=== PATIENT | male | born 1960 | race Caucasian/White ===

== ENCOUNTER 2016-05-12 19:07 | Observation (INO) | payer MEDICARE, MEDICAID ==
[~2016-05-12] VITALS: Ht 182.9 cm; Wt 113.4 kg
[2016-05-12 19:36] LABS: BASO # 0.1 K/mm3 (0.0-0.2); BASO % 0.7 % (0.0-1.0); EOS # 0.2 K/mm3 (0.0-0.50); EOS % 2.6 % (0.0-3.0); LARGE UNSTAINED CELL # 0.2 K/mm3 (0.0-0.4); LARGE UNSTAINED CELL % 1.8 % (0.0-4.0); LYMPH # 1.7 K/mm3 (1.5-4.5); LYMPH % 19.1 % (24.0-44.0); MEAN CORPUSCULAR HEMOGLOBIN 27.2 pg (27.0-33.0); MEAN CORPUSCULAR HGB CONC 33.1 g/dl (32.0-36.5); MONO # 0.6 K/mm3 (0.0-0.8); MONO % 6.4 % (0.0-5.0); NEUTROPHILS # 6.2 K/mm3 (1.8-7.7); NEUTROPHILS % 69.4 % (36.0-66.0); PLATELET COUNT, AUTOMATED 166 k/mm3 (150-450); RED CELL DISTRIBUTION WIDTH 13.9 % (11.5-14.5)
[2016-05-12 19:50] LABS: ANION GAP 7 MEQ/L (8-16); BLOOD UREA NITROGEN 14 MG/DL (7-18); CARBON DIOXIDE LEVEL 27 MEQ/L (21-32); CHLORIDE LEVEL 109 MEQ/L (98-107); CREATININE FOR GFR 1.12 MG/DL (0.70-1.30); GLOMERULAR FILTRATION RATE > 60.0 (>56); GLUCOSE, FASTING 99 MG/DL (70-105); POTASSIUM SERUM 3.8 MEQ/L (3.5-5.1); SODIUM LEVEL 143 MEQ/L (136-145)
--- NOTE | 2016-05-12 21:27 | REP ---
AP portable sitting chest radiograph 05/12/2016 Indication: Chest pain Comparison: None Findings: Cardiac silhouette is mildly enlarged. There is ectasia of thoracic aorta. There are diminished lung volumes with a small amount of bibasilar atelectasis. Pulmonary venous hypertension is suggested. Bones and soft tissues within normal limits Impression 1. Mild apparent cardiomegaly, contributed to portable technique 2. Diminished lung volumes with mild bibasilar atelectasis. 3. Pulmonary venous hypertension is suggested Signed by Zaida Jimenez MD 05/12/2016 09:18 P
[2016-05-12] MEDS ORDERED: PERCOCET 5MG/325MG TAB As Ordered ONE (23:23)
[2016-05-12] MEDS ORDERED: ZOLO100T PO (23:31)
[2016-05-12] MEDS ORDERED: PLAV75TA38 PO (23:31)
[2016-05-12] MEDS ORDERED: LOPR1TAB7 PO (23:31)
[2016-05-13 00:31] LABS: CHOLESTEROL LEVEL 173 MG/DL (<200); TRIGLYCERIDES LEVEL 297 MG/DL (<150)
[2016-05-13] MEDS ORDERED: NITROGLYCERIN 2% OINT 1 GM *U/D* PKT As Ordered ONE (00:33)
[2016-05-13] MEDS ORDERED: HEPARIN SOD (PORCINE) 5000 UNITS/ML VIAL IV ONE (01:00)
[2016-05-13] MEDS ORDERED: HEPARIN DRIP 25,000 UNITS in APPROPRIATE DILUENT 1 EA IV SCH (01:00)
[2016-05-13] MEDS ORDERED: HEPARIN SOD (PORCINE) 5000 UNITS/ML VIAL IV PRN (01:00)
[2016-05-13] MEDS ORDERED: MORPHINE 2 MG/ML 1ML SYRINGE As Ordered ONE (01:23)
[2016-05-13] MEDS ORDERED: METOPROLOL TART 50 MG TAB As Ordered ONE (01:23)
[2016-05-13] MEDS ORDERED: HEPARIN SOD (PORCINE) 5000 UNITS/ML VIAL As Ordered ONE (01:31)
[2016-05-13] MEDS ORDERED: HEPARIN 25,000 UNITS/250 ML D5W BAG (100 UNITS/ML) As Ordered ONE (01:31)
[2016-05-13 01:39] LABS: INR 0.99
[2016-05-13] MEDS ORDERED: ACETAMINOPHEN TAB 650MG DOSE (2X325MG) PO PRN (02:15)
[2016-05-13] MEDS ORDERED: MORPHINE 2 MG/ML 1ML SYRINGE IV PRN (02:15)
[2016-05-13] MEDS ORDERED: ONDANSETRON 4MG/2ML VIAL (J2405) IV PRN (02:15)
[2016-05-13 04:00] VITALS: BP 142/79
[2016-05-13 04:07] LABS: BASO # 0.3 K/mm3 (0.0-0.2); EOS # 0.3 K/mm3 (0.0-0.50); EOS % 3.2 % (0.0-3.0); LARGE UNSTAINED CELL # 0.1 K/mm3 (0.0-0.4); LARGE UNSTAINED CELL % 1.4 % (0.0-4.0); LYMPH # 2.7 K/mm3 (1.5-4.5); LYMPH % 26.4 % (24.0-44.0); MEAN CORPUSCULAR HEMOGLOBIN 26.8 pg (27.0-33.0); MEAN CORPUSCULAR HGB CONC 31.6 g/dl (32.0-36.5); MEAN CORPUSCULAR VOLUME 84.9 fl (80.0-96.0); MONO # 0.4 K/mm3 (0.0-0.8); MONO % 4.5 % (0.0-5.0); NEUTROPHILS # 5.9 K/mm3 (1.8-7.7); NEUTROPHILS % 61.5 % (36.0-66.0); PLATELET COUNT, AUTOMATED 140 k/mm3 (150-450); RED CELL DISTRIBUTION WIDTH 14.9 % (11.5-14.5); WHITE BLOOD COUNT 9.7 K/mm3 (4.0-10.0)
--- NOTE | 2016-05-13 04:07 | HPE ---
DATE OF ADMISSION: 05/13/2016 This is a patient of the [facility]. Steward/Stewardess Second is in [facility]. CHIEF COMPLAINT: Chest pain. The following is a summary of his presentation: This is a 55-year-old, known coronary artery disease status post myocardial infarction (MN) in 2013, who was taking the [employer] bus today on his way to visit a friend in [place]. Around 20 minutes from getting on the bus he developed chest pain, which was sudden in onset, 8/10, felt as though as the middle of his chest was caving in, radiating to his left neck and left arm. He became diaphoretic and vomited once in the bathroom at the back of the bus. He did take two nitroglycerin with no effect. He takes nitroglycerin at home three times a week, 1-2 tablets to relieve similar type of chest pain. He has elected not to discuss this with his primary care doctor as he did not want to go for further workup or catheterization. Chest pain lasted until about 1750 today. When he arrived in [place], upon getting off the bus, he developed chest pain again and the manager business planning suggested that rather than getting a cab to his friend's house he should probably come to the emergency room. In the emergency room, pain was treated and then recurred. When it recurred it was 5/10. It was radiating to his neck and arm, but did not cause nausea or diaphoresis. He was given opiates for the pain. He refused aspirin as he has an allergy to aspirin. He was also given nitroglycerin. Beta alejandra was started. He was started on a heparin drip and given intravenous (IV) morphine. Currently, he is pain free and sleeping. ALLERGIES: To ASPIRIN, which causes rash and shortness of breath. MEDICATIONS AT HOME: Include: - Plavix 75 mg daily - Lopressor 100 mg twice daily - Zoloft 100 mg once daily PAST MEDICAL HISTORY: Notable for: 1. Hypertension. 2. Coronary artery disease with an angioplasty done in 2013. 3. He has asthma, seldom uses an inhaler. PAST SURGICAL HISTORY: Notable for: 1. Two cardiac catheterizations. 2. Tonsillectomy. 3. Repair of a fractured right arm when he was younger. Socially, he has never been a smoker. He has not used alcohol in 32 years. He is on disability. He lives in [place], [place]. He is originally from [place], [place]. He is in [place] visiting a friend. FAMILY HISTORY: Notable for a father who of a myocardial infarction at age 59, a mother who is alive at 90, but had two myocardial infarctions, the first at age 60. REVIEW OF SYSTEMS: Notable for no headache. No visual changes. No runny nose. No sore throat. Not complaining of shortness of breath, although his breathing did get a little short when the pain was very intense. He does not suffer from lower extremity edema or orthopnea. His girlfriend tells him that he has sleep apnea. No abdominal pain. No change in bowel or bladder habits. Otherwise unremarkable. PHYSICAL EXAMINATION: Blood pressure 165/94, pulse 72, respiratory rate 20, temperature 99.2, pulse oximetry 95% on room air. Weight is 113.4 kg. He is awake, appropriately interactive, pleasantly conversant. He is a remarkably good historian. Mucous membranes moist. Neck is supple, but thick. Breathing is symmetrical, rested. I:E ratio is 1:3. There are no wheezes, rales or rhonchi. Heart is in a regular rate and rhythm. Normal S1, S2. Is not tachycardic. Radial pulses are 2+. Capillary refill is less than 2 seconds. Abdomen is round, soft, nontender. There is trace edema to the bilateral knees. He is moving all four extremities. Cranial nerves II-XII are grossly intact. He has a normal mood and affect. There are labs available for me to review, which include the following: White cell count is 9, hemoglobin is 14.8, platelets of 166. Sodium 143, BUN 14, creatinine 1.12, CK 60, repeats to 48, troponin I less than 0.02, repeats to less than 0.02. BNP is 7. Triglycerides 297, LDL is 76. Chest x-ray shows mild apparent cardiomegaly, diminished lung volumes with mild bibasilar atelectasis and pulmonary venous hypertension is suggested. EKGs show Q waves in the inferior leads and T-wave changes associated with those. He has evidence of left ventricular hypertrophy (LVH) by aVL criteria. My assessment is as follows: This is a 55-year-old in the setting of known coronary artery disease with unstable angina, most likely presenting as crescendo symptoms, which are brought on even at rest and not relieved with nitroglycerin. The patient will require catheterization and will be admitted to our hospital overnight. Plan is as follows: 1. Cardiovascular. Patient is on a heparin drip. He is continued on Plavix. I have given him beta alejandra. He is on nitroglycerin. He has opiates available for pain and he is currently pain free. I have discussed the case by phone with Dr. Valiente from [facility], who has agreed to accept the patient in transfer for consideration for catheterization and perhaps intervention. 2. Deep venous thrombosis (DVT) prophylaxis will be full-dose heparin. 3. Will continue his Zoloft. 4. Will keep him on a clear liquid diet for now and will sign this patient out to Dr. Rivas in the morning.
[2016-05-13 04:16] LABS: ANION GAP 9 MEQ/L (8-16); BLOOD UREA NITROGEN 14 MG/DL (7-18); CALCIUM LEVEL 8.5 MG/DL (8.5-10.1); CARBON DIOXIDE LEVEL 26 MEQ/L (21-32); CHLORIDE LEVEL 109 MEQ/L (98-107); CREATININE FOR GFR 1.01 MG/DL (0.70-1.30); GLOMERULAR FILTRATION RATE > 60.0 (>56); GLUCOSE, FASTING 99 MG/DL (70-105); SODIUM LEVEL 144 MEQ/L (136-145)
[2016-05-13 06:00] VITALS: BP 126/78
[2016-05-13] MEDS ORDERED: METOPROLOL TART 50 MG TAB PO SCH (06:00)
[2016-05-13 08:00] VITALS: BP 126/85
[2016-05-13] MEDS ORDERED: CLOPIDOGREL 75 MG TAB As Ordered ONE (08:29)
[2016-05-13] MEDS ORDERED: SERTRALINE 100 MG TAB As Ordered ONE (08:30)
[2016-05-13] MEDS ORDERED: SENOKOT S TAB PO SCH (09:00)
[2016-05-13] MEDS ORDERED: SERTRALINE 100 MG TAB PO SCH (09:00)
[2016-05-13] MEDS ORDERED: CLOPIDOGREL 75 MG TAB PO SCH (09:00)
--- NOTE | 2016-05-13 09:48 | EDDOCDS ---
Physician Documentation [facility] Name: Donn Gastelum Age: 55 yrs Sex: Male : 1960 Arrival Date: 05/12/2016 Time: 19:07 Bed Admit Hold Private MD: Disposition: 05/12/16 22:55 Hospitalization ordered by Donn Wing for Inpatient Admission. Preliminary diagnosis is Chest pain, unspecified. - Bed requested for Admit. - Status is Inpatient Admission. bcj - Condition is Stable. - Problem is new. - Symptoms have improved. Historical: - Allergies: Aspirin; - Home Meds: 1. Plavix 75 mg Oral tab 1 tab once daily (Last dose: 05/12/2016 08:00) 2. Lopressor 100 mg Oral tab 1 tab 2 times per day (Last dose: 05/12/2016 08:00) 3. Zoloft 100 mg Oral tab 1 tab once daily (Last dose: 05/12/2016 08:00) 4. metoprolol tartrate 100 mg Oral tab 1 tab once daily (Last dose: 05/12/2016 08:00) - PMHx: Hypertension; MIX2; - PSHx: Catheterization X2; Tonsillectomy; - Social history: Smoking status: Patient states was never smoker of tobacco. No barriers to communication noted, The patient speaks fluent [place], Speaks appropriately for age. - Family history: Not pertinent. - : The pt / caregiver states he / she is on anticoagulants: Plavix. Home medication list is obtained from the patient. - Exposure Risk Screening:: None identified. Vital Signs: 05/12 19:13 BP 160 / 91; Pulse 91; Resp 20; Temp 99.2(TE); Pulse Ox 95% on R/A; Weight 113.4 kg / audrey 250 lbs (R); Height 6 ft. 0 in. (182.88 cm) (R); Pain 5/10; 19:40 Pulse 86 MON; Pulse Ox 95% ; ko2 19:41 BP 162 / 80 (auto/); ko2 20:11 BP 155 / 80 (auto/); ko2 20:11 Pulse 82 MON; Pulse Ox 94% ; ko2 20:40 Pulse 78 MON; Pulse Ox 95% ; ko2 20:41 BP 156 / 77 (auto/); ko2 21:11 BP 151 / 74 (auto/); ko2 21:11 Pulse 76 MON; Pulse Ox 94% ; ko2 21:40 Pulse 78 MON; Pulse Ox 95% ; ko2 21:41 BP 164 / 86 (auto/); ko2 22:10 Pulse 74 MON; Pulse Ox 94% ; ko2 22:11 BP 157 / 83 (auto/); ko2 22:41 BP 161 / 103 (auto/); ko2 22:41 Pulse 70 MON; Pulse Ox 93% ; ko2 23:10 Pulse 72 MON; Pulse Ox 95% ; ko2 23:11 BP 165 / 94 (auto/); ko2 05/13 00:25 BP 177 / 110 (auto/); ko2 00:26 Pulse 64 MON; Pulse Ox 95% ; ko2 00:55 BP 190 / 103 (auto/); ko2 00:55 Pulse 62 MON; Pulse Ox 95% ; ko2 01:25 BP 185 / 135 (auto/); ko2 01:26 Pulse 62 MON; Pulse Ox 96% ; ko2 01:43 BP 185 / 99 (auto/); ko2 01:44 Pulse 62 MON; ko2 01:49 BP 168 / 98 (auto/); ko2 01:50 Pulse 64 MON; ko2 01:55 BP 179 / 110 (auto/); ko2 01:56 Pulse 62 MON; ko2 02:09 BP 178 / 97 (auto/); ko2 02:09 Pulse 62 MON; ko2 02:25 BP 164 / 96 (auto/); ko2 02:26 Pulse 56 MON; ko2 05/12 19:13 Body Mass Index 33.91 (113.40 kg, 182.88 cm) audrey MDM: 05/12 19:15 ECG WITH READING ER PHYS+CARDIAG ordered. EDMS 19:19 Aspirin Chewable Tablet 324 mg PO once ordered. fg 19:19 Bacteriologist Soil/Pulse Ox/q 30 min VS ordered. fg 19:19 IV Saline Lock ordered. fg 19:19 Rhythm Strip to chart ordered. fg 19:19 Undress patient appropriately for examination ordered. fg 19:19 Basic Metabolic Profile Ordered. EDMS 19:19 CBC with Diff Ordered. EDMS 19:20 Cardiac Injury Profile Ordered. EDMS 19:20 Troponin Ordered. EDMS 19:21 portable chest Ordered. EDMS 20:25 BNP Ordered. EDMS 21:49 Repeat EKG (put time details section) ordered. fg 21:50 Redraw CIP &Troponin (put time in details section) ordered. fg 21:51 Redraw CIP &Troponin (put time in details section) complete. ml3 21:51 Repeat EKG (put time details section) complete. ml3 21:52 ECG WITH READING ER PHYS ordered. EDMS 21:53 CARDIAC MARKER PANEL Ordered. EDMS 22:05 Financial registration complete. [email or web address] 22:05 [facility] Payment Agreement was scanned into [id number] and attached to record. [email or web address] 22:56 BED REQUEST+ADM ordered. EDMS 23:04 oxyCODONE-acetaminophen 5 mg-325 mg 1 tabs PO once ordered. fg 05/13 00:02 ELECTROCARDIOGRAM ADULT ordered. EDMS 00:11 CARDIAC RISK PROFILE Ordered. EDMS 01:01 Written Provider Order was scanned into [id number] and attached to record. ml3 01:04 PARTIAL THROMBOPLASTIN TIME Ordered. EDMS 01:04 PARTIAL THROMBOPLASTIN TIME Ordered. EDMS 01:04 PARTIAL THROMBOPLASTIN TIME Ordered. EDMS 01:04 PARTIAL THROMBOPLASTIN TIME Ordered. EDMS 01:29 PROTHROMBIN TIME PROFILE\E\INR Ordered. EDMS 02:14 Admission / Observation Status ordered. EDMS 02:14 ELECTROCARDIOGRAM ADULT ordered. EDMS 02:14 OTHER CUSTOM DIETS ordered. EDMS 02:16 CARDIAC MARKER PANEL Ordered. EDMS 02:16 CARDIAC MARKER PANEL Ordered. EDMS 02:16 CARDIAC MARKER PANEL Ordered. EDMS 02:16 CARDIAC MARKER PANEL Ordered. EDMS 02:16 CBC WITH DIFFERENTIAL Ordered. EDMS 02:17 BASIC METABOLIC PROFILE Ordered. EDMS Administered Medications: 05/12 19:22 Not Given (Patient Refused): Aspirin Chewable Tablet 324 mg PO once fg 23:31 Drug: oxyCODONE-acetaminophen 1 tabs [oxycodone-acetaminophen 5 mg-325 mg tablet (1 ko2 tabs)] Route: PO; Signatures: Dispatcher [employer] EDMS Dimas James, MORGAN RN Manish Haque, [employer] ml3 Radha Young RN RN ko2 Keila Wills MD MD Mayelin Linares, Reg Reg [email or web address] The chart was reviewed and I authenticate all verbal orders and agree with the evaluation and treatment provided.Corrections: (The following items were deleted from the chart) 05/13 00:11 00:06 CARDIAC RISK PROFILE ordered. EDMS EDMS : 01:20 PROTHROMBIN TIME PROFILE\E\INR+LAB ordered. EDMS EDMS Attachments: 05/12 22:05 [facility] Payment Agreement [email or web address] 05/13 01:01 Written Provider Order ml3 MTDD
--- NOTE | 2016-05-13 09:48 | EDDOCDS ---
Nurse's Notes [facility] Name: Donn Gastelum Age: 55 yrs Sex: Male : 1960 Arrival Date: 05/12/2016 Time: 19:07 Bed Admit Hold Private MD: Diagnosis: Chest pain, unspecified Presentation: 05/12 19:09 Presenting complaint: EMS states: an hour ago developed chest pain. Took 2 Nitro and ko2 pain went away. Got on the bus and chest pain started again. Pt has had a catheterization before and is supposed to schedule himself for another one and hasn't yet. Aspirin was not taken prior to arrival. Suicide/Homicide risk assessment- the patient denies having any suicidal and/or homicidal ideations and does not present with any other emotional, behavioral or mental health complaints. Status: Patient is not a director water and waste services or dependent. Transition of care: patient was not received from another setting of care. Care prior to arrival: See EMS report. Medications administered prior to arrival: NTG. 19:09 Acuity: BRIAN Level 2 ko2 19:09 Method Of Arrival: Ambulance ko2 20:03 Adult Sepsis Screening: The patient does not have new or worsening altered mentation. ko2 Patient's respiratory rate is less than 22. Systolic blood pressure is greater than 100. Patient has a qSOFA score of 0- Negative Sepsis Screen. Triage Assessment: 19:17 General: Appears in no apparent distress, Behavior is appropriate for age, cooperative. ko2 Pain: Location: anterior aspect of left upper chest Pain currently is 5 out of 10 on a pain scale. Pain radiates to neck and left arm. Pt Declines HIV testing. The patient is triaged at the bedside. See Assessment in Nurses Notes section of ED record. Neurological: Level of Consciousness is awake, alert, Oriented to person, place, time. Cardiovascular: Capillary refill < 3 seconds Heart tones S1 S2 present Rhythm is sinus rhythm Chest pain is described as Pain is 5 out of 10 on a pain scale. radiates to left arm(s) neck episodes are continuous began 2 hours prior to arrival. Respiratory: Airway is patent Respiratory effort is even, unlabored, Respiratory pattern is regular, symmetrical. GI: Abdomen is obese, Bowel sounds present X 4 quads. Abd is soft and non tender. Derm: Skin is pink, warm & dry. Musculoskeletal: Range of motion intact in all extremities. Historical: - Allergies: Aspirin; - Home Meds: 1. Plavix 75 mg Oral tab 1 tab once daily (Last dose: 05/12/2016 08:00) 2. Lopressor 100 mg Oral tab 1 tab 2 times per day (Last dose: 05/12/2016 08:00) 3. Zoloft 100 mg Oral tab 1 tab once daily (Last dose: 05/12/2016 08:00) 4. metoprolol tartrate 100 mg Oral tab 1 tab once daily (Last dose: 05/12/2016 08:00) - PMHx: Hypertension; MIX2; - PSHx: Catheterization X2; Tonsillectomy; - Social history: Smoking status: Patient states was never smoker of tobacco. No barriers to communication noted, The patient speaks fluent Montserratian, Speaks appropriately for age. - Family history: Not pertinent. - : The pt / caregiver states he / she is on anticoagulants: Plavix. Home medication list is obtained from the patient. - Exposure Risk Screening:: None identified. Screenin:20 Screening information is obtained from the patient. Fall risk: No risks identified. ko2 Fall risk: No risks identified. Assistance ADL's: requires no assistance with activities of daily living. Abuse/DV Screen: The patient / caregiver reports he/she is: not in a situation that causes fear, pain or injury. Nutritional screening: No deficits noted. Advance Directives: Currently, there is no health care proxy. There is no active DNR order. There is no living will. There is no Power of Carton Forming Machine Operator. home support is adequate. Assessment: 19:20 General: See triage assessment. ko2 20:05 General: Appears in no apparent distress, comfortable, Behavior is appropriate for age, ko2 cooperative. Neurological: Level of Consciousness is awake, alert. Cardiovascular: Rhythm is regular. Respiratory: Airway is patent Respiratory effort is even, unlabored. Derm: Skin is normal. 21:00 General: Appears in no apparent distress, comfortable, Behavior is appropriate for age, ko2 cooperative. Neurological: Level of Consciousness is awake, alert. Cardiovascular: Rhythm is regular. Respiratory: Airway is patent Respiratory effort is even, unlabored. Derm: Skin is normal. 22:09 General: Appears in no apparent distress, comfortable, Behavior is appropriate for age, ko2 cooperative. Pain: Location: left arm and neck and chest Pain currently is 5 out of 10 on a pain scale. Neurological: Level of Consciousness is awake, alert. Respiratory: Airway is patent Respiratory effort is even, unlabored. Derm: Skin is normal. 23:14 General: Appears in no apparent distress, Behavior is appropriate for age, cooperative. ko2 Neurological: Level of Consciousness is awake, alert. Respiratory: Airway is patent Respiratory effort is even, unlabored. Derm: Skin is normal. 05/13 00:30 General: Appears in no apparent distress, comfortable, Behavior is appropriate for age, ko2 cooperative. Pain: Location: left arm and neck and chest Pain currently is 5 out of 10 on a pain scale. Neurological: Level of Consciousness is awake, alert. Cardiovascular: Rhythm is regular. Respiratory: Airway is patent Respiratory effort is even, unlabored. 02:00 General: Appears in no apparent distress, comfortable, Behavior is appropriate for age, ko2 cooperative. Pain: Denies pain. Neurological: Level of Consciousness is awake, alert. Cardiovascular: Rhythm is regular. Respiratory: Airway is patent Respiratory effort is even, unlabored. Derm: Skin is normal. 02:57 General: Appears in no apparent distress, comfortable, Behavior is appropriate for age, ko2 cooperative. Pain: Denies pain. Neurological: Level of Consciousness is awake, alert. Respiratory: Airway is patent Respiratory effort is even, unlabored. Derm: 02:58 General: Report given to MORGAN Barrett. [facility] . ko2 04:17 General:. Cardiovascular: Rhythm is regular. ko2 Vital Signs: 05/12 19:13 BP 160 / 91; Pulse 91; Resp 20; Temp 99.2(TE); Pulse Ox 95% on R/A; Weight 113.4 kg audrey (R); Height 6 ft. 0 in. (182.88 cm) (R); Pain 5/10; 19:40 Pulse 86 MON; Pulse Ox 95% ; ko2 19:41 BP 162 / 80 (auto/); ko2 20:11 BP 155 / 80 (auto/); ko2 20:11 Pulse 82 MON; Pulse Ox 94% ; ko2 20:40 Pulse 78 MON; Pulse Ox 95% ; ko2 20:41 BP 156 / 77 (auto/); ko2 21:11 BP 151 / 74 (auto/); ko2 21:11 Pulse 76 MON; Pulse Ox 94% ; ko2 21:40 Pulse 78 MON; Pulse Ox 95% ; ko2 21:41 BP 164 / 86 (auto/); ko2 22:10 Pulse 74 MON; Pulse Ox 94% ; ko2 22:11 BP 157 / 83 (auto/); ko2 22:41 BP 161 / 103 (auto/); ko2 22:41 Pulse 70 MON; Pulse Ox 93% ; ko2 23:10 Pulse 72 MON; Pulse Ox 95% ; ko2 23:11 BP 165 / 94 (auto/); ko2 05/13 00:25 BP 177 / 110 (auto/); ko2 00:26 Pulse 64 MON; Pulse Ox 95% ; ko2 00:55 BP 190 / 103 (auto/); ko2 00:55 Pulse 62 MON; Pulse Ox 95% ; ko2 01:25 BP 185 / 135 (auto/); ko2 01:26 Pulse 62 MON; Pulse Ox 96% ; ko2 01:43 BP 185 / 99 (auto/); ko2 01:44 Pulse 62 MON; ko2 01:49 BP 168 / 98 (auto/); ko2 01:50 Pulse 64 MON; ko2 01:55 BP 179 / 110 (auto/); ko2 01:56 Pulse 62 MON; ko2 02:09 BP 178 / 97 (auto/); ko2 02:09 Pulse 62 MON; ko2 02:25 BP 164 / 96 (auto/); ko2 02:26 Pulse 56 MON; ko2 05/12 19:13 Body Mass Index 33.91 (113.40 kg, 182.88 cm) audrey Vitals: 05/12 19:40 Log In Time N/A - ambulance arrival. ko2 ED Course: 19:07 Patient visited by Manish Mcnamara, Foreclosure Paralegal. ml3 19:07 Patient moved to Waiting ml3 19:08 Radha Young,RN is Primary Nurse. ml3 19:08 Patient moved to 9 ml3 19:12 Triage Initiated ko2 19:13 Patient visited by Suzy Leon PCA. audrey 19:13 Pt greeted and oriented to ED. Patient advised of names of staff involved in care, audrey location of call chan, wait times and NPO status. Patient has correct armband on for positive identification. Placed in gown. Bed in low position. Call light in reach. Side rails up X2. study manager on. Pulse ox on. NIBP on. 19:19 Keila Wills MD is Attending Physician. fg 19:19 Patient visited by Suzy Leon PCA. audrey 19:19 EKG done. (by ED staff). Reviewed by Keila Wills MD. audrey 19:21 Basic Metabolic Profile Sent. ko2 19:21 CBC with Diff Sent. ko2 19:21 Cardiac Injury Profile Sent. ko2 19:21 Troponin Sent. ko2 20:04 The patient / caregiver is instructed regarding the plan of care and ED course. ko2 20:04 Inserted saline lock: 18 gauge in right antecubital area and blood collected. The ko2 patient tolerated the procedure well. IV started by Tania Gerber RN. 20:06 Patient visited by Radha Young,MORGAN. ko2 20:24 Patient visited by Keila Wills MD. fg 21:27 Patient visited by Radha Young RN. ko2 22:02 portable chest Returned. EDMS 22:03 EKG done. (by ED staff). Reviewed by Keila Wills MD. cln 22:05 [facility] Payment Agreement was scanned into [employer] and attached to record. ks16 22:09 CARDIAC MARKER PANEL Sent. ko2 22:12 Patient name changed from Donn\S\\S\Dombal\S\ to Donn\S\ \S\Dombal. EDMS 22:31 Patient visited by Radha Young RN. ko2 22:55 Donn Wing MD is Hospitalizing Provider. fg 23:33 Patient moved to 19 audrey 05/13 00:05 Patient visited by Suzy Leon PCA. audrey 00:05 EKG done. (by ED staff). Reviewed by Donn Wing MD. audrey 01:01 Written Provider Order was scanned into [employer] and attached to record. ml3 02:45 Patient moved to Admit Hold ml3 07:12 Primary Nurse role handed off by Radha Young,RN ar3 Administered Medications: 05/12 19:22 Not Given (Patient Refused): Aspirin Chewable Tablet 324 mg PO once fg 23:31 Drug: oxyCODONE-acetaminophen 1 tabs [oxycodone-acetaminophen 5 mg-325 mg tablet (1 ko2 tabs)] Route: PO; Order Results: Lab Order: Basic Metabolic Profile; SPEC'M 05/12/16 19:16 Test: GLUCOSE, FASTING; Value: 99; Range: 70-105; Units: MG/DL; Status: F Test: BLOOD UREA NITROGEN; Value: 14; Range: 7-18; Units: MG/DL; Status: F Test: CREATININE FOR GFR; Value: 1.12; Range: 0.70-1.30; Units: MG/DL; Status: F Test: GLOMERULAR FILTRATION RATE; Value: > 60.0; Range: >56; Status: F Test: SODIUM LEVEL; Value: 143; Range: 136-145; Units: MEQ/L; Status: F Test: POTASSIUM SERUM; Value: 3.8; Range: 3.5-5.1; Units: MEQ/L; Status: F Test: CHLORIDE LEVEL; Value: 109; Range: 98-107; Abnormal: Above high normal; Units: MEQ/L; Status: F Test: CARBON DIOXIDE LEVEL; Value: 27; Range: 21-32; Units: MEQ/L; Status: F Test: ANION GAP; Value: 7; Range: 8-16; Abnormal: Below low normal; Units: MEQ/L; Status: F Test: CALCIUM LEVEL; Value: 9.0; Range: 8.5-10.1; Units: MG/DL; Status: F Test Note: ; Units are mL/min/1.73 m2 Chronic Kidney Disease Staging per NKF: Stage I & II GFR >=60 Normal to Mildly Decreased Stage III GFR 30-59 Moderately Decreased Stage IV GFR 15-29 Severely Decreased Stage V GFR <15 Very Little GFR Left ESRD GFR <15 on SOFT METALS ENGRAVER HAND Lab Order: CBC with Diff; SPEC'M 05/12/16 19:16 Test: WHITE BLOOD COUNT; Value: 9.0; Range: 4.0-10.0; Units: K/mm3; Status: F Test: RED BLOOD COUNT; Value: 5.46; Range: 4.30-6.10; Units: M/mm3; Status: F Test: HEMOGLOBIN; Value: 14.8; Range: 14.0-18.0; Units: g/dl; Status: F Test: HEMATOCRIT; Value: 44.8; Range: 42.0-52.0; Units: %; Status: F Test: MEAN CORPUSCULAR VOLUME; Value: 82.0; Range: 80.0-96.0; Units: fl; Status: F Test: MEAN CORPUSCULAR HEMOGLOBIN; Value: 27.2; Range: 27.0-33.0; Units: pg; Status: F Test: MEAN CORPUSCULAR HGB CONC; Value: 33.1; Range: 32.0-36.5; Units: g/dl; Status: F Test: RED CELL DISTRIBUTION WIDTH; Value: 13.9; Range: 11.5-14.5; Units: %; Status: F Test: PLATELET COUNT, AUTOMATED; Value: 166; Range: 150-450; Units: k/mm3; Status: F Test: NEUTROPHILS %; Value: 69.4; Range: 36.0-66.0; Abnormal: Above high normal; Units: %; Status: F Test: LYMPH %; Value: 19.1; Range: 24.0-44.0; Abnormal: Below low normal; Units: %; Status: F Test: MONO %; Value: 6.4; Range: 0.0-5.0; Abnormal: Above high normal; Units: %; Status: F Test: EOS %; Value: 2.6; Range: 0.0-3.0; Units: %; Status: F Test: BASO %; Value: 0.7; Range: 0.0-1.0; Units: %; Status: F Test: LARGE UNSTAINED CELL %; Value: 1.8; Range: 0.0-4.0; Units: %; Status: F Test: NEUTROPHILS #; Value: 6.2; Range: 1.8-7.7; Units: K/mm3; Status: F Test: LYMPH #; Value: 1.7; Range: 1.5-4.5; Units: K/mm3; Status: F Test: MONO #; Value: 0.6; Range: 0.0-0.8; Units: K/mm3; Status: F Test: EOS #; Value: 0.2; Range: 0.0-0.50; Units: K/mm3; Status: F Test: BASO #; Value: 0.1; Range: 0.0-0.2; Units: K/mm3; Status: F Test: LARGE UNSTAINED CELL #; Value: 0.2; Range: 0.0-0.4; Units: K/mm3; Status: F Lab Order: Cardiac Injury Profile; [facility] 05/12/16 19:16 Test: CPK CREATINE PHOSPHOKINASE; Value: 60; Range: 39-308; Units: U/L; Status: F Test: CK-MB VALUE MASS; Value: 2.7; Range: 0.0-3.6; Units: NG/ML; Status: F Test: MB/CK RELATIVE INDEX; Value: 4.50; Range: < OR =4; Abnormal: Above high normal; Status: F Test Note: ; DIAGNOSIS CRITERIA MMB ng/ml Relative Index (RI) NON-AMI < or = 5 N/A HERNANDEZ ZONE > 5 < or = 4 AMI > 5 > 4 Lab Order: Troponin; [facility] 05/12/16 19:16 Test: TROPONIN I; Value: < 0.02; Range: < 0.10; Units: NG/ML; Status: F Test Note: ; Troponin I Reference Interval for [employer] LOCI: 99th Percentile= 0.00-0.045 ng/ml Risk Stratification: <= 0.10 ng/ml Decreased Risk for Adverse Clinical Events. 0.10-1.50 ng/ml Increased Risk for Adverse Clinical Events. Evaluation of additional criterion and/or repeat testing in 2-6 hours is suggested to rule out myocardial damage. >= 1.50 ng/ml Indicative of Myocardial Injury. Lab Order: BNP; [facility] 05/12/16 19:16 Test: BRAIN NATRIURETIC PEPTIDE; Value: 7.0; Range: <100; Units: PG/ML; Status: F Lab Order: CARDIAC MARKER PANEL; [facility] 05/12/16 22:07 Test: CPK CREATINE PHOSPHOKINASE; Value: 48; Range: 39-308; Units: U/L; Status: F Test: CK-MB VALUE MASS; Value: 2.4; Range: 0.0-3.6; Units: NG/ML; Status: F Test: MB/CK RELATIVE INDEX; Value: 5.00; Range: < OR =4; Abnormal: Above high normal; Status: F Test: TROPONIN I; Value: < 0.02; Range: < 0.10; Units: NG/ML; Status: F Test Note: ; DIAGNOSIS CRITERIA MMB ng/ml Relative Index (RI) NON-AMI < or = 5 N/A HERNANDEZ ZONE > 5 < or = 4 AMI > 5 > 4 Lab Order: CARDIAC RISK PROFILE; [facility] 05/12/16 19:16 Test: TRIGLYCERIDES LEVEL; Value: 297; Range: <150; Abnormal: Above high normal; Units: MG/DL; Status: F Test: CHOLESTEROL LEVEL; Value: 173; Range: <200; Units: MG/DL; Status: F Test: HDL CHOLESTEROL; Value: 37; Range: >40; Abnormal: Below low normal; Units: MG/DL; Status: F Test: LDL CHOLESTEROL; Value: 76.6; Range: <100; Units: MG/DL; Status: F Test: NON-HDL-C; Value: 136; Units: MG/DL; Status: F Test: CHOLESTEROL RISK RATIO; Value: 4.675; Range: <5; Status: F Lab Order: PARTIAL THROMBOPLASTIN TIME; [facility] 05/13/16 01:22 Test: PARTIAL THROMBOPLASTIN TIME; Value: 28.7; Range: 26.6-37.1; Units: SECONDS; Status: F Lab Order: PARTIAL THROMBOPLASTIN TIME; [facility] 05/13/16 06:53 Test: PARTIAL THROMBOPLASTIN TIME; Value: 76.1; Range: 26.6-37.1; Abnormal: Above high normal; Units: SECONDS; Status: F Lab Order: PROTHROMBIN TIME PROFILE\E\INR; [facility] 05/13/16 01:22 Test: PROTHROMBIN TIME; Value: 13.2; Range: 12.3-14.5; Units: SECONDS; Status: F Test: INR; Value: 0.99; Status: F Test Note: ; THERAPUTIC HUMAN INR VALUES INDICATIONS NORMAL RANGES PROPHYLAXIS/TREATMENT OF: VENOUS THROMBOSIS 2.0-3.0 PULMONARY EMBOLISM 2.0-3.0 PREVENTION OF SYSTEMIC EMBOLISM FROM: TISSUE HEART VALVES 2.0-3.0 ACUTE MYOCARDIAL INFARCTION 2.0-3.0 VALVULAR HEART DISEASE 2.0-3.0 ATRIAL FIBRILLATION 2.0-3.0 MECHANICAL VALVES(HIGH RISK) 2.5-3.5 RECURRENT MYOCARDIAL INFARCTION 2.5-3.5 Lab Order: CARDIAC MARKER PANEL; [facility] 05/13/16 03:50 Test: CPK CREATINE PHOSPHOKINASE; Value: 44; Range: 39-308; Units: U/L; Status: F Test: CK-MB VALUE MASS; Value: 2.0; Range: 0.0-3.6; Units: NG/ML; Status: F Test: MB/CK RELATIVE INDEX; Value: 4.54; Range: < OR =4; Abnormal: Above high normal; Status: F Test: TROPONIN I; Value: < 0.02; Range: < 0.10; Units: NG/ML; Status: F Test Note: ; DIAGNOSIS CRITERIA MMB ng/ml Relative Index (RI) NON-AMI < or = 5 N/A HERNANDEZ ZONE > 5 < or = 4 AMI > 5 > 4 Lab Order: CBC WITH DIFFERENTIAL; SPEC'M 05/13/16 03:50 Test: WHITE BLOOD COUNT; Value: 9.7; Range: 4.0-10.0; Units: K/mm3; Status: F Test: RED BLOOD COUNT; Value: 5.39; Range: 4.30-6.10; Units: M/mm3; Status: F Test: HEMOGLOBIN; Value: 14.5; Range: 14.0-18.0; Units: g/dl; Status: F Test: HEMATOCRIT; Value: 45.7; Range: 42.0-52.0; Units: %; Status: F Test: MEAN CORPUSCULAR VOLUME; Value: 84.9; Range: 80.0-96.0; Units: fl; Status: F Test: MEAN CORPUSCULAR HEMOGLOBIN; Value: 26.8; Range: 27.0-33.0; Abnormal: Below low normal; Units: pg; Status: F Test: MEAN CORPUSCULAR HGB CONC; Value: 31.6; Range: 32.0-36.5; Abnormal: Below low normal; Units: g/dl; Status: F Test: RED CELL DISTRIBUTION WIDTH; Value: 14.9; Range: 11.5-14.5; Abnormal: Above high normal; Units: %; Status: F Test: PLATELET COUNT, AUTOMATED; Value: 140; Range: 150-450; Abnormal: Below low normal; Units: k/mm3; Status: F Test: NEUTROPHILS %; Value: 61.5; Range: 36.0-66.0; Units: %; Status: F Test: LYMPH %; Value: 26.4; Range: 24.0-44.0; Units: %; Status: F Test: MONO %; Value: 4.5; Range: 0.0-5.0; Units: %; Status: F Test: EOS %; Value: 3.2; Range: 0.0-3.0; Abnormal: Above high normal; Units: %; Status: F Test: BASO %; Value: 3.0; Range: 0.0-1.0; Abnormal: Above high normal; Units: %; Status: F Test: LARGE UNSTAINED CELL %; Value: 1.4; Range: 0.0-4.0; Units: %; Status: F Test: NEUTROPHILS #; Value: 5.9; Range: 1.8-7.7; Units: K/mm3; Status: F Test: LYMPH #; Value: 2.7; Range: 1.5-4.5; Units: K/mm3; Status: F Test: MONO #; Value: 0.4; Range: 0.0-0.8; Units: K/mm3; Status: F Test: EOS #; Value: 0.3; Range: 0.0-0.50; Units: K/mm3; Status: F Test: BASO #; Value: 0.3; Range: 0.0-0.2; Abnormal: Above high normal; Units: K/mm3; Status: F Test: LARGE UNSTAINED CELL #; Value: 0.1; Range: 0.0-0.4; Units: K/mm3; Status: F Lab Order: BASIC METABOLIC PROFILE; SPEC'M 05/13/16 03:50 Test: GLUCOSE, FASTING; Value: 99; Range: 70-105; Units: MG/DL; Status: F Test: BLOOD UREA NITROGEN; Value: 14; Range: 7-18; Units: MG/DL; Status: F Test: CREATININE FOR GFR; Value: 1.01; Range: 0.70-1.30; Units: MG/DL; Status: F Test: GLOMERULAR FILTRATION RATE; Value: > 60.0; Range: >56; Status: F Test: SODIUM LEVEL; Value: 144; Range: 136-145; Units: MEQ/L; Status: F Test: POTASSIUM SERUM; Value: 4.0; Range: 3.5-5.1; Units: MEQ/L; Status: F Test: CHLORIDE LEVEL; Value: 109; Range: 98-107; Abnormal: Above high normal; Units: MEQ/L; Status: F Test: CARBON DIOXIDE LEVEL; Value: 26; Range: 21-32; Units: MEQ/L; Status: F Test: ANION GAP; Value: 9; Range: 8-16; Units: MEQ/L; Status: F Test: CALCIUM LEVEL; Value: 8.5; Range: 8.5-10.1; Units: MG/DL; Status: F Test Note: ; Units are mL/min/1.73 m2 Chronic Kidney Disease Staging per NKF: Stage I & II GFR >=60 Normal to Mildly Decreased Stage III GFR 30-59 Moderately Decreased Stage IV GFR 15-29 Severely Decreased Stage V GFR <15 Very Little GFR Left ESRD GFR <15 on SOFT METALS ENGRAVER HAND Radiology Order: portable chest Test: portable chest REASON FOR EXAMINATION: Chest Pain; AP portable sitting chest radiograph 05/12/2016; ; Indication: Chest pain; ; Comparison: None; ; Findings: Cardiac silhouette is mildly enlarged. There is ectasia of thoracic; aorta. There are diminished lung volumes with a small amount of bibasilar; atelectasis.; ; Pulmonary venous hypertension is suggested.; ; Bones and soft tissues within normal limits; ; Impression; 1. Mild apparent cardiomegaly, contributed to portable technique; 2. Diminished lung volumes with mild bibasilar atelectasis.; 3. Pulmonary venous hypertension is suggested; ; ; Signed by; Zaida Jimenez MD 05/12/2016 09:18 P; Outcome: 22:55 Decision to Hospitalize by Provider. 05/13 09:48 Patient left the ED. [facility] Signatures: Dispatcher [employer] Dimas Helm, RN RN Manish Haque, Foreclosure Paralegal Unit ml3 Amira Muniz, SAFETY SUPERVISOR SAFETY SUPERVISOR ar3 Suzy Leon, SAFETY SUPERVISOR SAFETY SUPERVISOR Radha Becerra RN RN ko2 Keila Wills MD MD fg Mayelin Linares, Reg Reg [id number] Nohelia Garner, SAFETY SUPERVISOR SAFETY SUPERVISOR cln MTDD
--- NOTE | 2016-05-13 10:01 | ECGEPIP ---
Stationary ECG Study [facility] Test Date: 2016-05-13 Pat Name: KANG LUCAS Department: Room: Gender: M Central Sterile Supply Technician: MontesB: 1960 Requested By: KANG Contreras Order Number: [id number] Reading MD: Yahir Gilman Measurements Intervals [place] Rate: 64 P: 9 PA: 181 QRS: -14 QRSD: 100 T: -5 QT: 395 QTc: 409 Interpretive Statements Normal sinus rhythm Leftward axis Probable left ventricular hypertrophy No significant change when compared to prior tracing of 05/12/2016 Electronically Signed On 05-13-2016 10:00:36 EST by Yahir Gilman
--- NOTE | 2016-05-13 13:11 | ECGEPIP ---
Stationary ECG Study [facility] - ED Test Date: 2016-05-12 Pat Name: KANG LUCAS Department: Room: [facility] Gender: M Sql Programmer: MontesB: 1960 Requested By: ANU BRITTON Order Number: [id number] Reading MD: Negin Sung Measurements Intervals [place] Rate: 91 P: 11 SC: 166 QRS: -13 QRSD: 102 T: -5 QT: 357 QTc: 439 Interpretive Statements SINUS RHYTHM VOLTAGE CRITERIA FOR LVH NO PRIOR FOR COMPARISON Electronically Signed On 05-13-2016 13:10:59 EST by Negin Sung
--- NOTE | 2016-05-13 20:48 | ECGEPIP ---
Stationary ECG Study [facility] Test Date: 2016-05-12 Pat Name: KANG LUCAS Department: Room: Gender: M Breakfast Host: MontesB: 1960 Requested By: KANG Contreras Order Number: [id number] Reading MD: Yahir Gilman Measurements Intervals [place] Rate: 75 P: 11 DC: 169 QRS: -10 QRSD: 111 T: -5 QT: 374 QTc: 420 Interpretive Statements Normal sinus rhythm Left atrial abnormality Consider LVH No significant change when compared to prior tracing of 05/12/2016 Electronically Signed On 05-13-2016 20:47:32 EST by Yahir Gilman
--- NOTE | 2016-05-14 09:52 | DSES ---
DATE OF ADMISSION: 05/13/2016 DATE OF DISCHARGE: 05/13/2016 The patient was transferred to [facility] for possible cardiac catheterization on May 13, 2016. FINAL DIAGNOSIS: 1. Unstable angina. 2. Depression. 3. Obesity. 4. Coronary artery disease. 5. Asthma. Forestry Professor: Dr. Valiente. HISTORY OF PRESENT ILLNESS: This is a 53-year-old male patient with known coronary arterial disease status post myocardial infarction 2013 who was taking the [employer] bus today on his way to visit friends in [place]. Around 20 minutes from getting on the bus the patient developed chest pain sudden in onset which was 8/10. He felt as if the middle of his chest was caving in, radiating to his left neck and left arm and he also became diaphoretic, vomited once in the bathroom at the back of the bus. He did take two nitroglycerine, which had no effect. He takes nitroglycerine at home three times a week, or 1-2 tablets to relieve similar type of chest pain. The patient elected not to discuss this with his primary care provider as he did not want to go for further work-up or catheterization. The chest pain lasted until about 17:50 yesterday as he arrived in [place] upon getting off the bus the patient developed chest pain again and the bushwalking guide suggested that rather than getting a cab to his friend's house to come to the emergency room. In the emergency room the patient had another episode of chest pain. The patient was given pain medications, started on heparin drip. Cardiology at [facility], Dr. Valiente was contacted. Arrangements are made for the patient to be transferred. The patient was monitored over night. This morning the patient was transferred to [facility] for possible cardiological intervention. VITAL SIGNS: Temperature 95.6, pulse 57, respirations 18, blood pressure 126/85, pulse oximetry 97% on room air. LABORATORY DATA: WBC 9.7, hemoglobin 14.5, hematocrit 45.7, platelets 140. Chemistry: Sodium 144, potassium 4, chloride 109, bicarbonate 26, BUN 14, creatinine 1.01. Cardiac enzymes drawn and negative times three. INPATIENT MEDICATIONS: - heparin drip - Plavix 75 mg - Senokot S one table by mouth twice a day - acetaminophen 650 mg by mouth every 6 hours as needed - Lopressor 50 mg by mouth every 6 hours - morphine 2 mg intravenous (IV) every two hours as needed - Zofran 4 mg IV every 6 hours as needed - Zoloft 100 mg by mouth daily DISCHARGE INSTRUCTIONS: The patient was instructed to followup with cardiology at [facility] for further care. After discharge followup with primary care provider in seven days.
--- NOTE | 2016-05-15 10:48 | EDDOCDS ---
Physician Documentation [facility] Name: Donn Gastelum Age: 55 yrs Sex: Male : 1960 Arrival Date: 05/12/2016 Time: 19:07 Bed Admit Hold Private MD: Disposition: 05/12/16 22:55 Hospitalization ordered by Donn Wing for Inpatient Admission. Preliminary diagnosis is Chest pain, unspecified. - Bed requested for Admit. - Status is Inpatient Admission. bcj - Condition is Stable. - Problem is new. - Symptoms have improved. Historical: - Allergies: Aspirin; - Home Meds: 1. Plavix 75 mg Oral tab 1 tab once daily (Last dose: 05/12/2016 08:00) 2. Lopressor 100 mg Oral tab 1 tab 2 times per day (Last dose: 05/12/2016 08:00) 3. Zoloft 100 mg Oral tab 1 tab once daily (Last dose: 05/12/2016 08:00) 4. metoprolol tartrate 100 mg Oral tab 1 tab once daily (Last dose: 05/12/2016 08:00) - PMHx: Hypertension; MIX2; - PSHx: Catheterization X2; Tonsillectomy; - Social history: Smoking status: Patient states was never smoker of tobacco. No barriers to communication noted, The patient speaks fluent Panamanian, Speaks appropriately for age. - Family history: Not pertinent. - : The pt / caregiver states he / she is on anticoagulants: Plavix. Home medication list is obtained from the patient. - Exposure Risk Screening:: None identified. Vital Signs: 05/12 19:13 BP 160 / 91; Pulse 91; Resp 20; Temp 99.2(TE); Pulse Ox 95% on R/A; Weight 113.4 kg / audrey 250 lbs (R); Height 6 ft. 0 in. (182.88 cm) (R); Pain 5/10; 19:40 Pulse 86 MON; Pulse Ox 95% ; ko2 19:41 BP 162 / 80 (auto/); ko2 20:11 BP 155 / 80 (auto/); ko2 20:11 Pulse 82 MON; Pulse Ox 94% ; ko2 20:40 Pulse 78 MON; Pulse Ox 95% ; ko2 20:41 BP 156 / 77 (auto/); ko2 21:11 BP 151 / 74 (auto/); ko2 21:11 Pulse 76 MON; Pulse Ox 94% ; ko2 21:40 Pulse 78 MON; Pulse Ox 95% ; ko2 21:41 BP 164 / 86 (auto/); ko2 22:10 Pulse 74 MON; Pulse Ox 94% ; ko2 22:11 BP 157 / 83 (auto/); ko2 22:41 BP 161 / 103 (auto/); ko2 22:41 Pulse 70 MON; Pulse Ox 93% ; ko2 23:10 Pulse 72 MON; Pulse Ox 95% ; ko2 23:11 BP 165 / 94 (auto/); ko2 05/13 00:25 BP 177 / 110 (auto/); ko2 00:26 Pulse 64 MON; Pulse Ox 95% ; ko2 00:55 BP 190 / 103 (auto/); ko2 00:55 Pulse 62 MON; Pulse Ox 95% ; ko2 01:25 BP 185 / 135 (auto/); ko2 01:26 Pulse 62 MON; Pulse Ox 96% ; ko2 01:43 BP 185 / 99 (auto/); ko2 01:44 Pulse 62 MON; ko2 01:49 BP 168 / 98 (auto/); ko2 01:50 Pulse 64 MON; ko2 01:55 BP 179 / 110 (auto/); ko2 01:56 Pulse 62 MON; ko2 02:09 BP 178 / 97 (auto/); ko2 02:09 Pulse 62 MON; ko2 02:25 BP 164 / 96 (auto/); ko2 02:26 Pulse 56 MON; ko2 05/12 19:13 Body Mass Index 33.91 (113.40 kg, 182.88 cm) audrey MDM: 05/12 19:15 ECG WITH READING ER PHYS+CARDIAG ordered. EDMS 19:19 Aspirin Chewable Tablet 324 mg PO once ordered. fg 19:19 Hop Weigher/Pulse Ox/q 30 min VS ordered. fg 19:19 IV Saline Lock ordered. fg 19:19 Rhythm Strip to chart ordered. fg 19:19 Undress patient appropriately for examination ordered. fg 19:19 Basic Metabolic Profile Ordered. EDMS 19:19 CBC with Diff Ordered. EDMS 19:20 Cardiac Injury Profile Ordered. EDMS 19:20 Troponin Ordered. EDMS 19:21 portable chest Ordered. EDMS 20:25 BNP Ordered. EDMS 21:49 Repeat EKG (put time details section) ordered. fg 21:50 Redraw CIP &Troponin (put time in details section) ordered. fg 21:51 Redraw CIP &Troponin (put time in details section) complete. ml3 21:51 Repeat EKG (put time details section) complete. ml3 21:52 ECG WITH READING ER PHYS ordered. EDMS 21:53 CARDIAC MARKER PANEL Ordered. EDMS 22:05 Financial registration complete. [email or web address] 22:05 [facility] Payment Agreement was scanned into [employer] and attached to record. [email or web address] 22:56 BED REQUEST+ADM ordered. EDMS 23:04 oxyCODONE-acetaminophen 5 mg-325 mg 1 tabs PO once ordered. fg 05/13 00:02 ELECTROCARDIOGRAM ADULT ordered. EDMS 00:11 CARDIAC RISK PROFILE Ordered. EDMS 01:01 Written Provider Order was scanned into [employer] and attached to record. ml3 01:04 PARTIAL THROMBOPLASTIN TIME Ordered. EDMS 01:04 PARTIAL THROMBOPLASTIN TIME Ordered. EDMS 01:04 PARTIAL THROMBOPLASTIN TIME Ordered. EDMS 01:04 PARTIAL THROMBOPLASTIN TIME Ordered. EDMS 01:29 PROTHROMBIN TIME PROFILE\E\INR Ordered. EDMS 02:14 Admission / Observation Status ordered. EDMS 02:14 ELECTROCARDIOGRAM ADULT ordered. EDMS 02:14 OTHER CUSTOM DIETS ordered. EDMS 02:16 CARDIAC MARKER PANEL Ordered. EDMS 02:16 CARDIAC MARKER PANEL Ordered. EDMS 02:16 CARDIAC MARKER PANEL Ordered. EDMS 02:16 CARDIAC MARKER PANEL Ordered. EDMS 02:16 CBC WITH DIFFERENTIAL Ordered. EDMS 02:17 BASIC METABOLIC PROFILE Ordered. EDMS 16:07 T-Sheet-- Draft Copy was scanned into [employer] and attached to record. klr 17:50 ECG/EKG was scanned into [employer] and attached to record. kf3 19:32 CARDIAC MARKER PANEL Ordered. EDMS 19:32 CARDIAC MARKER PANEL Ordered. EDMS 19:32 CARDIAC MARKER PANEL Ordered. EDMS 19:32 PARTIAL THROMBOPLASTIN TIME Ordered. EDMS 19:32 PARTIAL THROMBOPLASTIN TIME Ordered. EDMS 19:32 COMPLETE BLOOD COUNT Ordered. EDMS 19:32 BASIC METABOLIC PROFILE Ordered. EDMS Administered Medications: 05/12 19:22 Not Given (Patient Refused): Aspirin Chewable Tablet 324 mg PO once fg 23:31 Drug: oxyCODONE-acetaminophen 1 tabs [oxycodone-acetaminophen 5 mg-325 mg tablet (1 ko2 tabs)] Route: PO; Signatures: Dispatcher [employer] EDMS Dimas James, RN RN Natasha Haquezabeth, Director Of Women'S Services Unit ml3 Shay Flanagan, Reg Reg kf3 Radha Young RN RN ko2 Keila Wills MD MD fg Sorenson, Kimberly, Reg Reg ks16 Elise Hernandez klcullen The chart was reviewed and I authenticate all verbal orders and agree with the evaluation and treatment provided.Corrections: (The following items were deleted from the chart) 05/13 00:11 00:06 CARDIAC RISK PROFILE ordered. EDMS EDMS 01:20 PROTHROMBIN TIME PROFILE\E\INR+LAB ordered. EDMS EDMS Attachments: 05/12 22:05 [facility] Payment Agreement [email or web address] 05/13 01:01 Written Provider Order ml3 16:07 T-Sheet-- Draft Copy klr 17:50 ECG/EKG kf3 Chart Complete MTDD
--- NOTE | 2016-05-15 10:48 | EDDOCDS ---
Physician Documentation [facility] Name: Donn Gastelum Age: 55 yrs Sex: Male : 1960 Arrival Date: 05/12/2016 Time: 19:07 Bed Admit Hold Private MD: Disposition: 05/12/16 22:55 Hospitalization ordered by Donn Wing for Inpatient Admission. Preliminary diagnosis is Chest pain, unspecified. - Bed requested for Admit. - Status is Inpatient Admission. bcj - Condition is Stable. - Problem is new. - Symptoms have improved. Historical: - Allergies: Aspirin; - Home Meds: 1. Plavix 75 mg Oral tab 1 tab once daily (Last dose: 05/12/2016 08:00) 2. Lopressor 100 mg Oral tab 1 tab 2 times per day (Last dose: 05/12/2016 08:00) 3. Zoloft 100 mg Oral tab 1 tab once daily (Last dose: 05/12/2016 08:00) 4. metoprolol tartrate 100 mg Oral tab 1 tab once daily (Last dose: 05/12/2016 08:00) - PMHx: Hypertension; MIX2; - PSHx: Catheterization X2; Tonsillectomy; - Social history: Smoking status: Patient states was never smoker of tobacco. No barriers to communication noted, The patient speaks fluent [place], Speaks appropriately for age. - Family history: Not pertinent. - : The pt / caregiver states he / she is on anticoagulants: Plavix. Home medication list is obtained from the patient. - Exposure Risk Screening:: None identified. Vital Signs: 05/12 19:13 BP 160 / 91; Pulse 91; Resp 20; Temp 99.2(TE); Pulse Ox 95% on R/A; Weight 113.4 kg / audrey 250 lbs (R); Height 6 ft. 0 in. (182.88 cm) (R); Pain 5/10; 19:40 Pulse 86 MON; Pulse Ox 95% ; ko2 19:41 BP 162 / 80 (auto/); ko2 20:11 BP 155 / 80 (auto/); ko2 20:11 Pulse 82 MON; Pulse Ox 94% ; ko2 20:40 Pulse 78 MON; Pulse Ox 95% ; ko2 20:41 BP 156 / 77 (auto/); ko2 21:11 BP 151 / 74 (auto/); ko2 21:11 Pulse 76 MON; Pulse Ox 94% ; ko2 21:40 Pulse 78 MON; Pulse Ox 95% ; ko2 21:41 BP 164 / 86 (auto/); ko2 22:10 Pulse 74 MON; Pulse Ox 94% ; ko2 22:11 BP 157 / 83 (auto/); ko2 22:41 BP 161 / 103 (auto/); ko2 22:41 Pulse 70 MON; Pulse Ox 93% ; ko2 23:10 Pulse 72 MON; Pulse Ox 95% ; ko2 23:11 BP 165 / 94 (auto/); ko2 05/13 00:25 BP 177 / 110 (auto/); ko2 00:26 Pulse 64 MON; Pulse Ox 95% ; ko2 00:55 BP 190 / 103 (auto/); ko2 00:55 Pulse 62 MON; Pulse Ox 95% ; ko2 01:25 BP 185 / 135 (auto/); ko2 01:26 Pulse 62 MON; Pulse Ox 96% ; ko2 01:43 BP 185 / 99 (auto/); ko2 01:44 Pulse 62 MON; ko2 01:49 BP 168 / 98 (auto/); ko2 01:50 Pulse 64 MON; ko2 01:55 BP 179 / 110 (auto/); ko2 01:56 Pulse 62 MON; ko2 02:09 BP 178 / 97 (auto/); ko2 02:09 Pulse 62 MON; ko2 02:25 BP 164 / 96 (auto/); ko2 02:26 Pulse 56 MON; ko2 05/12 19:13 Body Mass Index 33.91 (113.40 kg, 182.88 cm) audrey MDM: 05/12 19:15 ECG WITH READING ER PHYS+CARDIAG ordered. EDMS 19:19 Aspirin Chewable Tablet 324 mg PO once ordered. fg 19:19 Campground Attendant/Pulse Ox/q 30 min VS ordered. fg 19:19 IV Saline Lock ordered. fg 19:19 Rhythm Strip to chart ordered. fg 19:19 Undress patient appropriately for examination ordered. fg 19:19 Basic Metabolic Profile Ordered. EDMS 19:19 CBC with Diff Ordered. EDMS 19:20 Cardiac Injury Profile Ordered. EDMS 19:20 Troponin Ordered. EDMS 19:21 portable chest Ordered. EDMS 20:25 BNP Ordered. EDMS 21:49 Repeat EKG (put time details section) ordered. fg 21:50 Redraw CIP &Troponin (put time in details section) ordered. fg 21:51 Redraw CIP &Troponin (put time in details section) complete. ml3 21:51 Repeat EKG (put time details section) complete. ml3 21:52 ECG WITH READING ER PHYS ordered. EDMS 21:53 CARDIAC MARKER PANEL Ordered. EDMS 22:05 Financial registration complete. [email or web address] 22:05 [facility] Payment Agreement was scanned into [employer] and attached to record. [email or web address] 22:56 BED REQUEST+ADM ordered. EDMS 23:04 oxyCODONE-acetaminophen 5 mg-325 mg 1 tabs PO once ordered. fg 05/13 00:02 ELECTROCARDIOGRAM ADULT ordered. EDMS 00:11 CARDIAC RISK PROFILE Ordered. EDMS 01:01 Written Provider Order was scanned into [employer] and attached to record. ml3 01:04 PARTIAL THROMBOPLASTIN TIME Ordered. EDMS 01:04 PARTIAL THROMBOPLASTIN TIME Ordered. EDMS 01:04 PARTIAL THROMBOPLASTIN TIME Ordered. EDMS 01:04 PARTIAL THROMBOPLASTIN TIME Ordered. EDMS 01:29 PROTHROMBIN TIME PROFILE\E\INR Ordered. EDMS 02:14 Admission / Observation Status ordered. EDMS 02:14 ELECTROCARDIOGRAM ADULT ordered. EDMS 02:14 OTHER CUSTOM DIETS ordered. EDMS 02:16 CARDIAC MARKER PANEL Ordered. EDMS 02:16 CARDIAC MARKER PANEL Ordered. EDMS 02:16 CARDIAC MARKER PANEL Ordered. EDMS 02:16 CARDIAC MARKER PANEL Ordered. EDMS 02:16 CBC WITH DIFFERENTIAL Ordered. EDMS 02:17 BASIC METABOLIC PROFILE Ordered. EDMS 16:07 T-Sheet-- Draft Copy was scanned into [employer] and attached to record. klr 17:50 ECG/EKG was scanned into [employer] and attached to record. kf3 19:32 CARDIAC MARKER PANEL Ordered. EDMS 19:32 CARDIAC MARKER PANEL Ordered. EDMS 19:32 CARDIAC MARKER PANEL Ordered. EDMS 19:32 PARTIAL THROMBOPLASTIN TIME Ordered. EDMS 19:32 PARTIAL THROMBOPLASTIN TIME Ordered. EDMS 19:32 COMPLETE BLOOD COUNT Ordered. EDMS 19:32 BASIC METABOLIC PROFILE Ordered. EDMS Administered Medications: 05/12 19:22 Not Given (Patient Refused): Aspirin Chewable Tablet 324 mg PO once fg 23:31 Drug: oxyCODONE-acetaminophen 1 tabs [oxycodone-acetaminophen 5 mg-325 mg tablet (1 ko2 tabs)] Route: PO; Signatures: Dispatcher [employer] EDMS Dimas James, RN RN Natasha Haquezabeth, Mining Captain Unit ml3 Shay Flanagan, Reg Reg kf3 Radha Young RN RN ko2 Keila Wills MD MD fg Sorenson, Kimberly, Reg Reg ks16 Elise Hernandez klcullen The chart was reviewed and I authenticate all verbal orders and agree with the evaluation and treatment provided.Corrections: (The following items were deleted from the chart) 05/13 00:11 00:06 CARDIAC RISK PROFILE ordered. EDMS EDMS 01:20 PROTHROMBIN TIME PROFILE\E\INR+LAB ordered. EDMS EDMS Attachments: 05/12 22:05 [facility] Payment Agreement [email or web address] 05/13 01:01 Written Provider Order ml3 16:07 T-Sheet-- Draft Copy klr 17:50 ECG/EKG kf3 Chart Complete MTDD
--- NOTE | 2016-05-15 10:49 | EDDOCDS ---
Nurse's Notes [facility] Name: Kang Lucas Age: 55 yrs Sex: Male : 1960 Arrival Date: 05/12/2016 Time: 19:07 Bed Admit Hold Private MD: Diagnosis: Chest pain, unspecified Presentation: 05/12 19:09 Presenting complaint: EMS states: an hour ago developed chest pain. Took 2 Nitro and ko2 pain went away. Got on the bus and chest pain started again. Pt has had a catheterization before and is supposed to schedule himself for another one and hasn't yet. Aspirin was not taken prior to arrival. Suicide/Homicide risk assessment- the patient denies having any suicidal and/or homicidal ideations and does not present with any other emotional, behavioral or mental health complaints. 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 Transition of care: patient was not received from another setting of care. Care prior to arrival: See EMS report. Medications administered prior to arrival: NTG. 19:09 Acuity: BRIAN Level 2 ko2 19:09 Method Of Arrival: Ambulance ko2 20:03 Adult Sepsis Screening: The patient does not have new or worsening altered mentation. ko2 Patient's respiratory rate is less than 22. Systolic blood pressure is greater than 100. Patient has a qSOFA score of 0- Negative Sepsis Screen. Triage Assessment: 19:17 General: Appears in no apparent distress, Behavior is appropriate for age, cooperative. ko2 Pain: Location: anterior aspect of left upper chest Pain currently is 5 out of 10 on a pain scale. Pain radiates to neck and left arm. Pt Declines HIV testing. The patient is triaged at the bedside. See Assessment in Nurses Notes section of ED record. Neurological: Level of Consciousness is awake, alert, Oriented to person, place, time. Cardiovascular: Capillary refill < 3 seconds Heart tones S1 S2 present Rhythm is sinus rhythm Chest pain is described as Pain is 5 out of 10 on a pain scale. radiates to left arm(s) neck episodes are continuous began 2 hours prior to arrival. Respiratory: Airway is patent Respiratory effort is even, unlabored, Respiratory pattern is regular, symmetrical. GI: Abdomen is obese, Bowel sounds present X 4 quads. Abd is soft and non tender. Derm: Skin is pink, warm & dry. Musculoskeletal: Range of motion intact in all extremities. Historical: - Allergies: Aspirin; - Home Meds: 1. Plavix 75 mg Oral tab 1 tab once daily (Last dose: 05/12/2016 08:00) 2. Lopressor 100 mg Oral tab 1 tab 2 times per day (Last dose: 05/12/2016 08:00) 3. Zoloft 100 mg Oral tab 1 tab once daily (Last dose: 05/12/2016 08:00) 4. metoprolol tartrate 100 mg Oral tab 1 tab once daily (Last dose: 05/12/2016 08:00) - PMHx: Hypertension; MIX2; - PSHx: Catheterization X2; Tonsillectomy; - Social history: Smoking status: Patient states was never smoker of tobacco. No barriers to communication noted, The patient speaks fluent Uzbek, Speaks appropriately for age. - Family history: Not pertinent. - : The pt / caregiver states he / she is on anticoagulants: Plavix. Home medication list is obtained from the patient. - Exposure Risk Screening:: None identified. Screenin:20 Screening information is obtained from the patient. Fall risk: No risks identified. ko2 Fall risk: No risks identified. Assistance ADL's: requires no assistance with activities of daily living. Abuse/DV Screen: The patient / caregiver reports he/she is: not in a situation that causes fear, pain or injury. Nutritional screening: No deficits noted. Advance Directives: Currently, there is no health care proxy. There is no active DNR order. There is no living will. There is no Power of Interactive Project Manager. home support is adequate. Assessment: 19:20 General: See triage assessment. ko2 20:05 General: Appears in no apparent distress, comfortable, Behavior is appropriate for age, ko2 cooperative. Neurological: Level of Consciousness is awake, alert. Cardiovascular: Rhythm is regular. Respiratory: Airway is patent Respiratory effort is even, unlabored. Derm: Skin is normal. 21:00 General: Appears in no apparent distress, comfortable, Behavior is appropriate for age, ko2 cooperative. Neurological: Level of Consciousness is awake, alert. Cardiovascular: Rhythm is regular. Respiratory: Airway is patent Respiratory effort is even, unlabored. Derm: Skin is normal. 22:09 General: Appears in no apparent distress, comfortable, Behavior is appropriate for age, ko2 cooperative. Pain: Location: left arm and neck and chest Pain currently is 5 out of 10 on a pain scale. Neurological: Level of Consciousness is awake, alert. Respiratory: Airway is patent Respiratory effort is even, unlabored. Derm: Skin is normal. 23:14 General: Appears in no apparent distress, Behavior is appropriate for age, cooperative. ko2 Neurological: Level of Consciousness is awake, alert. Respiratory: Airway is patent Respiratory effort is even, unlabored. Derm: Skin is normal. 05/13 00:30 General: Appears in no apparent distress, comfortable, Behavior is appropriate for age, ko2 cooperative. Pain: Location: left arm and neck and chest Pain currently is 5 out of 10 on a pain scale. Neurological: Level of Consciousness is awake, alert. Cardiovascular: Rhythm is regular. Respiratory: Airway is patent Respiratory effort is even, unlabored. 02:00 General: Appears in no apparent distress, comfortable, Behavior is appropriate for age, ko2 cooperative. Pain: Denies pain. Neurological: Level of Consciousness is awake, alert. Cardiovascular: Rhythm is regular. Respiratory: Airway is patent Respiratory effort is even, unlabored. Derm: Skin is normal. 02:57 General: Appears in no apparent distress, comfortable, Behavior is appropriate for age, ko2 cooperative. Pain: Denies pain. Neurological: Level of Consciousness is awake, alert. Respiratory: Airway is patent Respiratory effort is even, unlabored. Derm: 02:58 General: Report given to MORGAN Barrett. [facility] documentation . ko2 04:17 General:. Cardiovascular: Rhythm is regular. ko2 Vital Signs: 05/12 19:13 BP 160 / 91; Pulse 91; Resp 20; Temp 99.2(TE); Pulse Ox 95% on R/A; Weight 113.4 kg audrey (R); Height 6 ft. 0 in. (182.88 cm) (R); Pain 5/10; 19:40 Pulse 86 MON; Pulse Ox 95% ; ko2 19:41 BP 162 / 80 (auto/); ko2 20:11 BP 155 / 80 (auto/); ko2 20:11 Pulse 82 MON; Pulse Ox 94% ; ko2 20:40 Pulse 78 MON; Pulse Ox 95% ; ko2 20:41 BP 156 / 77 (auto/); ko2 21:11 BP 151 / 74 (auto/); ko2 21:11 Pulse 76 MON; Pulse Ox 94% ; ko2 21:40 Pulse 78 MON; Pulse Ox 95% ; ko2 21:41 BP 164 / 86 (auto/); ko2 22:10 Pulse 74 MON; Pulse Ox 94% ; ko2 22:11 BP 157 / 83 (auto/); ko2 22:41 BP 161 / 103 (auto/); ko2 22:41 Pulse 70 MON; Pulse Ox 93% ; ko2 23:10 Pulse 72 MON; Pulse Ox 95% ; ko2 23:11 BP 165 / 94 (auto/); ko2 05/13 00:25 BP 177 / 110 (auto/); ko2 00:26 Pulse 64 MON; Pulse Ox 95% ; ko2 00:55 BP 190 / 103 (auto/); ko2 00:55 Pulse 62 MON; Pulse Ox 95% ; ko2 01:25 BP 185 / 135 (auto/); ko2 01:26 Pulse 62 MON; Pulse Ox 96% ; ko2 01:43 BP 185 / 99 (auto/); ko2 01:44 Pulse 62 MON; ko2 01:49 BP 168 / 98 (auto/); ko2 01:50 Pulse 64 MON; ko2 01:55 BP 179 / 110 (auto/); ko2 01:56 Pulse 62 MON; ko2 02:09 BP 178 / 97 (auto/); ko2 02:09 Pulse 62 MON; ko2 02:25 BP 164 / 96 (auto/); ko2 02:26 Pulse 56 MON; ko2 05/12 19:13 Body Mass Index 33.91 (113.40 kg, 182.88 cm) audrey Vitals: 05/12 19:40 Log In Time N/A - ambulance arrival. ko2 ED Course: 19:07 Patient visited by Manish Mcnamara, Public Relations Analyst. ml3 19:07 Patient moved to Waiting ml3 19:08 Radha Young,RN is Primary Nurse. ml3 19:08 Patient moved to 9 ml3 19:12 Triage Initiated ko2 19:13 Patient visited by Suzy Leon PCA. audrey 19:13 Pt greeted and oriented to ED. Patient advised of names of staff involved in care, audrey location of call chan, wait times and NPO status. Patient has correct armband on for positive identification. Placed in gown. Bed in low position. Call light in reach. Side rails up X2. exhibit specialist on. Pulse ox on. NIBP on. 19:19 Keila Wills MD is Attending Physician. fg 19:19 Patient visited by Suzy Leon PCA. audrey 19:19 EKG done. (by ED staff). Reviewed by Keila Wills MD. audrey 19:21 Basic Metabolic Profile Sent. ko2 19:21 CBC with Diff Sent. ko2 19:21 Cardiac Injury Profile Sent. ko2 19:21 Troponin Sent. ko2 20:04 The patient / caregiver is instructed regarding the plan of care and ED course. ko2 20:04 Inserted saline lock: 18 gauge in right antecubital area and blood collected. The ko2 patient tolerated the procedure well. IV started by Tania Gerber RN. 20:06 Patient visited by Radha Young,MORGAN. ko2 20:24 Patient visited by Keila Wills MD. fg 21:27 Patient visited by Radha Young RN. ko2 22:02 portable chest Returned. EDMS 22:03 EKG done. (by ED staff). Reviewed by Keila Wills MD. cln 22:05 [facility] Payment Agreement was scanned into [employer] and attached to record. ks16 22:09 CARDIAC MARKER PANEL Sent. ko2 22:12 Patient name changed from Kang\S\\S\Dombal\S\ to Kang\S\ \S\Dombal. EDMS 22:31 Patient visited by Radha Young RN. ko2 22:55 Kang Wing MD is Hospitalizing Provider. fg 23:33 Patient moved to 19 audrey 05/13 00:05 Patient visited by Suzy Leon PCA. audrey 00:05 EKG done. (by ED staff). Reviewed by Kang Wing MD. audrey 01:01 Written Provider Order was scanned into [employer] and attached to record. ml3 02:45 Patient moved to Admit Hold ml3 07:12 Primary Nurse role handed off by Radha Young,RN ar3 10:17 ELECTROCARDIOGRAM ADULT Returned. EDMS 13:42 EKG-ADULT Returned. EDMS 16:07 T-Sheet-- Draft Copy was scanned into [employer] and attached to record. klr 17:50 ECG/EKG was scanned into [employer] and attached to record. kf3 20:55 ELECTROCARDIOGRAM ADULT Returned. EDMS Administered Medications: 05/12 19:22 Not Given (Patient Refused): Aspirin Chewable Tablet 324 mg PO once fg 23:31 Drug: oxyCODONE-acetaminophen 1 tabs [oxycodone-acetaminophen 5 mg-325 mg tablet (1 ko2 tabs)] Route: PO; Order Results: Lab Order: Basic Metabolic Profile; SPEC'M 05/12/16 19:16 Test: GLUCOSE, FASTING; Value: 99; Range: 70-105; Units: MG/DL; Status: F Test: BLOOD UREA NITROGEN; Value: 14; Range: 7-18; Units: MG/DL; Status: F Test: CREATININE FOR GFR; Value: 1.12; Range: 0.70-1.30; Units: MG/DL; Status: F Test: GLOMERULAR FILTRATION RATE; Value: > 60.0; Range: >56; Status: F Test: SODIUM LEVEL; Value: 143; Range: 136-145; Units: MEQ/L; Status: F Test: POTASSIUM SERUM; Value: 3.8; Range: 3.5-5.1; Units: MEQ/L; Status: F Test: CHLORIDE LEVEL; Value: 109; Range: 98-107; Abnormal: Above high normal; Units: MEQ/L; Status: F Test: CARBON DIOXIDE LEVEL; Value: 27; Range: 21-32; Units: MEQ/L; Status: F Test: ANION GAP; Value: 7; Range: 8-16; Abnormal: Below low normal; Units: MEQ/L; Status: F Test: CALCIUM LEVEL; Value: 9.0; Range: 8.5-10.1; Units: MG/DL; Status: F Test Note: ; Units are mL/min/1.73 m2 Chronic Kidney Disease Staging per NKF: Stage I & II GFR >=60 Normal to Mildly Decreased Stage III GFR 30-59 Moderately Decreased Stage IV GFR 15-29 Severely Decreased Stage V GFR <15 Very Little GFR Left ESRD GFR <15 on PILOT PLANT OPERATOR Lab Order: CBC with Diff; SPEC'M 05/12/16 19:16 Test: WHITE BLOOD COUNT; Value: 9.0; Range: 4.0-10.0; Units: K/mm3; Status: F Test: RED BLOOD COUNT; Value: 5.46; Range: 4.30-6.10; Units: M/mm3; Status: F Test: HEMOGLOBIN; Value: 14.8; Range: 14.0-18.0; Units: g/dl; Status: F Test: HEMATOCRIT; Value: 44.8; Range: 42.0-52.0; Units: %; Status: F Test: MEAN CORPUSCULAR VOLUME; Value: 82.0; Range: 80.0-96.0; Units: fl; Status: F Test: MEAN CORPUSCULAR HEMOGLOBIN; Value: 27.2; Range: 27.0-33.0; Units: pg; Status: F Test: MEAN CORPUSCULAR HGB CONC; Value: 33.1; Range: 32.0-36.5; Units: g/dl; Status: F Test: RED CELL DISTRIBUTION WIDTH; Value: 13.9; Range: 11.5-14.5; Units: %; Status: F Test: PLATELET COUNT, AUTOMATED; Value: 166; Range: 150-450; Units: k/mm3; Status: F Test: NEUTROPHILS %; Value: 69.4; Range: 36.0-66.0; Abnormal: Above high normal; Units: %; Status: F Test: LYMPH %; Value: 19.1; Range: 24.0-44.0; Abnormal: Below low normal; Units: %; Status: F Test: MONO %; Value: 6.4; Range: 0.0-5.0; Abnormal: Above high normal; Units: %; Status: F Test: EOS %; Value: 2.6; Range: 0.0-3.0; Units: %; Status: F Test: BASO %; Value: 0.7; Range: 0.0-1.0; Units: %; Status: F Test: LARGE UNSTAINED CELL %; Value: 1.8; Range: 0.0-4.0; Units: %; Status: F Test: NEUTROPHILS #; Value: 6.2; Range: 1.8-7.7; Units: K/mm3; Status: F Test: LYMPH #; Value: 1.7; Range: 1.5-4.5; Units: K/mm3; Status: F Test: MONO #; Value: 0.6; Range: 0.0-0.8; Units: K/mm3; Status: F Test: EOS #; Value: 0.2; Range: 0.0-0.50; Units: K/mm3; Status: F Test: BASO #; Value: 0.1; Range: 0.0-0.2; Units: K/mm3; Status: F Test: LARGE UNSTAINED CELL #; Value: 0.2; Range: 0.0-0.4; Units: K/mm3; Status: F Lab Order: Cardiac Injury Profile; [facility] 05/12/16 19:16 Test: CPK CREATINE PHOSPHOKINASE; Value: 60; Range: 39-308; Units: U/L; Status: F Test: CK-MB VALUE MASS; Value: 2.7; Range: 0.0-3.6; Units: NG/ML; Status: F Test: MB/CK RELATIVE INDEX; Value: 4.50; Range: < OR =4; Abnormal: Above high normal; Status: F Test Note: ; DIAGNOSIS CRITERIA MMB ng/ml Relative Index (RI) NON-AMI < or = 5 N/A HERNANDEZ ZONE > 5 < or = 4 AMI > 5 > 4 Lab Order: Troponin; [facility] 05/12/16 19:16 Test: TROPONIN I; Value: < 0.02; Range: < 0.10; Units: NG/ML; Status: F Test Note: ; Troponin I Reference Interval for Dr. Z LOCI: 99th Percentile= 0.00-0.045 ng/ml Risk Stratification: <= 0.10 ng/ml Decreased Risk for Adverse Clinical Events. 0.10-1.50 ng/ml Increased Risk for Adverse Clinical Events. Evaluation of additional criterion and/or repeat testing in 2-6 hours is suggested to rule out myocardial damage. >= 1.50 ng/ml Indicative of Myocardial Injury. Lab Order: BNP; [facility] 05/12/16 19:16 Test: BRAIN NATRIURETIC PEPTIDE; Value: 7.0; Range: <100; Units: PG/ML; Status: F Lab Order: CARDIAC MARKER PANEL; [facility] 05/12/16 22:07 Test: CPK CREATINE PHOSPHOKINASE; Value: 48; Range: 39-308; Units: U/L; Status: F Test: CK-MB VALUE MASS; Value: 2.4; Range: 0.0-3.6; Units: NG/ML; Status: F Test: MB/CK RELATIVE INDEX; Value: 5.00; Range: < OR =4; Abnormal: Above high normal; Status: F Test: TROPONIN I; Value: < 0.02; Range: < 0.10; Units: NG/ML; Status: F Test Note: ; DIAGNOSIS CRITERIA MMB ng/ml Relative Index (RI) NON-AMI < or = 5 N/A HERNANDEZ ZONE > 5 < or = 4 AMI > 5 > 4 Lab Order: CARDIAC RISK PROFILE; 05/12/16 19:16 Test: TRIGLYCERIDES LEVEL; Value: 297; Range: <150; Abnormal: Above high normal; Units: MG/DL; Status: F Test: CHOLESTEROL LEVEL; Value: 173; Range: <200; Units: MG/DL; Status: F Test: HDL CHOLESTEROL; Value: 37; Range: >40; Abnormal: Below low normal; Units: MG/DL; Status: F Test: LDL CHOLESTEROL; Value: 76.6; Range: <100; Units: MG/DL; Status: F Test: NON-HDL-C; Value: 136; Units: MG/DL; Status: F Test: CHOLESTEROL RISK RATIO; Value: 4.675; Range: <5; Status: F Lab Order: PARTIAL THROMBOPLASTIN TIME; 05/13/16 01:22 Test: PARTIAL THROMBOPLASTIN TIME; Value: 28.7; Range: 26.6-37.1; Units: SECONDS; Status: F Lab Order: PARTIAL THROMBOPLASTIN TIME; 05/13/16 06:53 Test: PARTIAL THROMBOPLASTIN TIME; Value: 76.1; Range: 26.6-37.1; Abnormal: Above high normal; Units: SECONDS; Status: F Lab Order: PROTHROMBIN TIME PROFILE\E\INR; 05/13/16 01:22 Test: PROTHROMBIN TIME; Value: 13.2; Range: 12.3-14.5; Units: SECONDS; Status: F Test: INR; Value: 0.99; Status: F Test Note: ; THERAPUTIC HUMAN INR VALUES INDICATIONS NORMAL RANGES PROPHYLAXIS/TREATMENT OF: VENOUS THROMBOSIS 2.0-3.0 PULMONARY EMBOLISM 2.0-3.0 PREVENTION OF SYSTEMIC EMBOLISM FROM: TISSUE HEART VALVES 2.0-3.0 ACUTE MYOCARDIAL INFARCTION 2.0-3.0 VALVULAR HEART DISEASE 2.0-3.0 ATRIAL FIBRILLATION 2.0-3.0 MECHANICAL VALVES(HIGH RISK) 2.5-3.5 RECURRENT MYOCARDIAL INFARCTION 2.5-3.5 Lab Order: CARDIAC MARKER PANEL; [facility] 05/13/16 03:50 Test: CPK CREATINE PHOSPHOKINASE; Value: 44; Range: 39-308; Units: U/L; Status: F Test: CK-MB VALUE MASS; Value: 2.0; Range: 0.0-3.6; Units: NG/ML; Status: F Test: MB/CK RELATIVE INDEX; Value: 4.54; Range: < OR =4; Abnormal: Above high normal; Status: F Test: TROPONIN I; Value: < 0.02; Range: < 0.10; Units: NG/ML; Status: F Test Note: ; DIAGNOSIS CRITERIA MMB ng/ml Relative Index (RI) NON-AMI < or = 5 N/A HERNANDEZ ZONE > 5 < or = 4 AMI > 5 > 4 Lab Order: CBC WITH DIFFERENTIAL; [facility] 05/13/16 03:50 Test: WHITE BLOOD COUNT; Value: 9.7; Range: 4.0-10.0; Units: K/mm3; Status: F Test: RED BLOOD COUNT; Value: 5.39; Range: 4.30-6.10; Units: M/mm3; Status: F Test: HEMOGLOBIN; Value: 14.5; Range: 14.0-18.0; Units: g/dl; Status: F Test: HEMATOCRIT; Value: 45.7; Range: 42.0-52.0; Units: %; Status: F Test: MEAN CORPUSCULAR VOLUME; Value: 84.9; Range: 80.0-96.0; Units: fl; Status: F Test: MEAN CORPUSCULAR HEMOGLOBIN; Value: 26.8; Range: 27.0-33.0; Abnormal: Below low normal; Units: pg; Status: F Test: MEAN CORPUSCULAR HGB CONC; Value: 31.6; Range: 32.0-36.5; Abnormal: Below low normal; Units: g/dl; Status: F Test: RED CELL DISTRIBUTION WIDTH; Value: 14.9; Range: 11.5-14.5; Abnormal: Above high normal; Units: %; Status: F Test: PLATELET COUNT, AUTOMATED; Value: 140; Range: 150-450; Abnormal: Below low normal; Units: k/mm3; Status: F Test: NEUTROPHILS %; Value: 61.5; Range: 36.0-66.0; Units: %; Status: F Test: LYMPH %; Value: 26.4; Range: 24.0-44.0; Units: %; Status: F Test: MONO %; Value: 4.5; Range: 0.0-5.0; Units: %; Status: F Test: EOS %; Value: 3.2; Range: 0.0-3.0; Abnormal: Above high normal; Units: %; Status: F Test: BASO %; Value: 3.0; Range: 0.0-1.0; Abnormal: Above high normal; Units: %; Status: F Test: LARGE UNSTAINED CELL %; Value: 1.4; Range: 0.0-4.0; Units: %; Status: F Test: NEUTROPHILS #; Value: 5.9; Range: 1.8-7.7; Units: K/mm3; Status: F Test: LYMPH #; Value: 2.7; Range: 1.5-4.5; Units: K/mm3; Status: F Test: MONO #; Value: 0.4; Range: 0.0-0.8; Units: K/mm3; Status: F Test: EOS #; Value: 0.3; Range: 0.0-0.50; Units: K/mm3; Status: F Test: BASO #; Value: 0.3; Range: 0.0-0.2; Abnormal: Above high normal; Units: K/mm3; Status: F Test: LARGE UNSTAINED CELL #; Value: 0.1; Range: 0.0-0.4; Units: K/mm3; Status: F Lab Order: BASIC METABOLIC PROFILE; SPEC'M 05/13/16 03:50 Test: GLUCOSE, FASTING; Value: 99; Range: 70-105; Units: MG/DL; Status: F Test: BLOOD UREA NITROGEN; Value: 14; Range: 7-18; Units: MG/DL; Status: F Test: CREATININE FOR GFR; Value: 1.01; Range: 0.70-1.30; Units: MG/DL; Status: F Test: GLOMERULAR FILTRATION RATE; Value: > 60.0; Range: >56; Status: F Test: SODIUM LEVEL; Value: 144; Range: 136-145; Units: MEQ/L; Status: F Test: POTASSIUM SERUM; Value: 4.0; Range: 3.5-5.1; Units: MEQ/L; Status: F Test: CHLORIDE LEVEL; Value: 109; Range: 98-107; Abnormal: Above high normal; Units: MEQ/L; Status: F Test: CARBON DIOXIDE LEVEL; Value: 26; Range: 21-32; Units: MEQ/L; Status: F Test: ANION GAP; Value: 9; Range: 8-16; Units: MEQ/L; Status: F Test: CALCIUM LEVEL; Value: 8.5; Range: 8.5-10.1; Units: MG/DL; Status: F Test Note: ; Units are mL/min/1.73 m2 Chronic Kidney Disease Staging per NKF: Stage I & II GFR >=60 Normal to Mildly Decreased Stage III GFR 30-59 Moderately Decreased Stage IV GFR 15-29 Severely Decreased Stage V GFR <15 Very Little GFR Left ESRD GFR <15 on PILOT PLANT OPERATOR Radiology Order: EKG-ADULT Test: EKG-ADULT REASON FOR EXAMINATION: Chest Pain; Stationary ECG Study; [facility] - ED; ; Test Date: 2016-05-12; Pat Name: KANG LUCAS Department:; Room: [place] [address]; Gender: M Lathe Set Up Person: richie; : 1960 Requested By: ANU BRITTON; Order Number: [id number] Reading MD: Negin Sung; Measurements; Intervals [place]; Rate: 91 P: 11; HI: 166 QRS: -13; QRSD: 102 T: -5; QT: 357; QTc: 439; Interpretive Statements; SINUS RHYTHM; VOLTAGE CRITERIA FOR LVH; NO PRIOR FOR COMPARISON; Electronically Signed On 05-13-2016 13:10:59 EST by Negin Sung; Radiology Order: portable chest Test: portable chest REASON FOR EXAMINATION: Chest Pain; AP portable sitting chest radiograph 05/12/2016; ; Indication: Chest pain; ; Comparison: None; ; Findings: Cardiac silhouette is mildly enlarged. There is ectasia of thoracic; aorta. There are diminished lung volumes with a small amount of bibasilar; atelectasis.; ; Pulmonary venous hypertension is suggested.; ; Bones and soft tissues within normal limits; ; Impression; 1. Mild apparent cardiomegaly, contributed to portable technique; 2. Diminished lung volumes with mild bibasilar atelectasis.; 3. Pulmonary venous hypertension is suggested; ; ; Signed by; Zaida Jimenez MD 05/12/2016 09:18 P; Radiology Order: ELECTROCARDIOGRAM ADULT Test: ELECTROCARDIOGRAM ADULT REASON FOR EXAMINATION: CHEST PAIN; Stationary ECG Study; [facility]; ; Test Date: 2016-05-13; Pat Name: KANG LUCAS Department:; Room: [place] [address]; Gender: M Lathe Set Up Person: richie; : 1960 Requested By: KANG Contrreas; Order Number: [id number] Reading MD: Yahir Gilman; Measurements; Intervals [place]; Rate: 64 P: 9; HI: 181 QRS: -14; QRSD: 100 T: -5; QT: 395; QTc: 409; Interpretive Statements; Normal sinus rhythm; Leftward axis; Probable left ventricular hypertrophy; No significant change when compared to prior tracing of 05/12/2016; ; Electronically Signed On 05-13-2016 10:00:36 EST by Yahir Gilman; Radiology Order: ELECTROCARDIOGRAM ADULT Test: ELECTROCARDIOGRAM ADULT REASON FOR EXAMINATION: chest pain; Stationary ECG Study; [facility]; ; Test Date: 2016-05-12; Pat Name: KANG LUCAS Department:; Room: [place] [address]; Gender: M Lathe Set Up Person: richie; : 1960 Requested By: KANG Contreras; Order Number: [id number] Reading : Yahir Gilman; Measurements; Intervals [place]; Rate: 75 P: 11; HI: 169 QRS: -10; QRSD: 111 T: -5; QT: 374; QTc: 420; Interpretive Statements; Normal sinus rhythm; Left atrial abnormality; Consider LVH; No significant change when compared to prior tracing of 05/12/2016; ; Electronically Signed On 05-13-2016 20:47:32 EST by Yahir Gilman; Outcome: 22:55 Decision to Hospitalize by Provider. fg 05/13 09:48 Patient left the ED. [facility] Signatures: Dispatcher [employer] EDDimas Cardona, RN RN juhi Mcnamara BrendaAnthonyEugenia, Public Relations Analyst Unit ml3 Shay Flanagan, Reg Reg kf3 Amira Muniz, BONDING MACHINE OPERATOR BONDING MACHINE OPERATOR ar3 Suzy Leon, BONDING MACHINE OPERATOR BONDING MACHINE OPERATOR Radha Becerra RN RN addison2 Keila Wills MD MD fg Sorenson, Kimberly, Reg Reg ks16 Nohelia Garner, BONDING MACHINE OPERATOR BONDING MACHINE OPERATOR Elise Rojo Chart Complete MTDD
== END 2016-05-13 09:45 | disposition short-term general hospital (02) ==
LOC: M ED 19:07 → M ED INP 19:08 → UNDOADMOB 05-13 02:10 → M ED INP 05-13 02:10 → UNDODISOB 05-13 09:45
PROVIDERS: ADMIT Internal Medicine; ATTEND Hospitalist
DX: I25.110 Atherosclerotic heart disease of native coronary artery with unstable angina pectoris (principal); I10 Essential (primary) hypertension; I25.2 Old myocardial infarction; R94.31 Abnormal electrocardiogram [ECG] [EKG]; R06.02 Shortness of breath; J45.909 Unspecified asthma, uncomplicated; F32.9 Major depressive disorder, single episode, unspecified; E66.9 Obesity, unspecified; Z79.899 Other long term (current) drug therapy; Z79.02 Long term (current) use of antithrombotics/antiplatelets; Z88.6 Allergy status to analgesic agent
CPT/HCPCS: 36415; 71010; 80048; 80061; 82550; 82553; 83880; 84484; 85025; 85610; 85730; 93005; 93041; 99285; G0378